=== PATIENT | male | born 1975 | race Caucasian/White ===

== ENCOUNTER 2017-08-08 12:31 | Emergency (ER) | payer BC ==
[~2017-08-08] VITALS: Ht 185.4 cm; Wt 96.6 kg
[~2017-08-08 12:31] MED LIST: A-B OTIC EAR DR15 ML OT; AMOXICILLIN500 M1 PO; AUGMENTIN 875875 MG PO; COLACE 100 MG100 MG PO; FLEXERIL PO; HYDROCODONE-AP1 EAC6 PO; MEDROLDOSEPACK PO; NORCO 5-325 TA1 EACH PO; PREDNISONE50 MG PO; VENTOLIN17 GM INH; VICODIN 5-5001 EACH PO; ZOFRAN ODT4 MG PO
[2017-08-08] MEDS ORDERED: BACTRIM DS TAB1 EACH PO (12:56)
[2017-08-08] MEDS ORDERED: NAPROSYN500 MG PO (12:56)
[2017-08-08] MEDS ORDERED: NORCO 5-325 TA1 EACH PO (12:56)
[2017-08-08 13:58] VITALS: BP 139/93
== END 2017-08-08 13:59 | disposition home or self-care (01) ==
LOC: M.ERS 12:31
DX: L02.415 Cutaneous abscess of right lower limb (principal); J45.909 Unspecified asthma, uncomplicated; F17.210 Nicotine dependence, cigarettes, uncomplicated; Z86.14 Personal history of Methicillin resistant Staphylococcus aureus infection

== ENCOUNTER → 2018-07-04 | Emergency (ER) | payer BC ==
[~2018-07-04] VITALS: Ht 188 cm; Wt 102.5 kg
[~2018-07-04] MED LIST changes: +AMOX TR-K CLV1 EAC4 PO; +BACTRIM DS TAB1 EACH PO; +DICLOFENAC SODI75 MG PO; +HYDROCODON-ACE1 EAC7 PO; +NAPROSYN500 MG PO
[2018-07-04 08:17] LABS: ABSOLUTE BASOPHILS 0.1 thou/uL (0.0-0.2); ABSOLUTE EOSINOPHILS 0.4 thou/uL (0.0-0.7); ABSOLUTE LYMPHOCYTES 2.8 thou/uL (0.8-5.3); ABSOLUTE MONOCYTES 0.7 thou/uL (0.0-1.2); ABSOLUTE NEUTROPHILS 4.9 thou/uL (1.6-8.1); HEMATOCRIT 57.3 % (42.0-52.0); HEMOGLOBIN 19.5 gm/dL (14.0-18.0); LYMPHOCYTES 31.5 %; MCH 31.7 pg (26.0-34.0); MCHC 34.1 g/dL (28.0-37.0); MONOCYTES 8.1 %; MPV 9.5 fl. (7.2-11.1); NUCLEATED RBCS 0 /100WBC; PLATELET COUNT* 266 thou/uL (150-400); POLYS 54.4 %; RBC 6.16 mil/uL (4.50-6.00); RDW-CV 14.1 % (10.5-14.5)
[2018-07-04 08:31] LABS: ALBUMIN 3.5 g/dL (3.4-5.0); ALKALINE PHOSPHATASE 85 U/L (46-116); ANION GAP 8 mmol/L (7-16); BUN 17 mg/dL (7-18); CALCIUM 8.5 mg/dL (8.5-10.1); CHLORIDE 102 mmol/L (98-107); CO2 27 mmol/L (21-32); GLUCOSE 98 mg/dL (70-99); NT-PRO BRAIN NAT PEPTIDE 25 pg/mL (<300); POTASSIUM 3.9 mmol/L (3.5-5.1); SGOT 39 U/L (15-37); SGPT 147 U/L (30-65); SODIUM 137 mmol/L (136-145); TOTAL BILIRUBIN 0.6 mg/dL (<0.1-1.0); TOTAL PROTEIN 7.1 g/dL (6.4-8.2); TROPONIN-I LEVEL <0.06 ng/mL (<0.06)
[2018-07-04 08:59] VITALS: BP 124/80
--- NOTE | 2018-07-04 10:26 | EKG ---
[place] [address] ELECTROCARDIOGRAM REPORT Name: ERNESTINA COLBERT Room: [facility]#: [id number] Admission: 07/04/18 Attend Phys: Discharge: Date of : 77 Report #: [id number] THIS REPORT FOR: //name// [facility] ED Test Date: 2018-07-04 Test Time: 07:45:12 Pat Name: ERNESTINA COLBERT Department: Room: Gender: Quick Technician: Christie AREVALO : 1975 Requested By: Oc Fabian Order Number: [id number] MD: Darrick Aldana Measurements Intervals [place] Rate: 104 P: 70 PA: 147 QRS: 74 QRSD: 89 T: 52 QT: 308 QTc: 405 Interpretive Statements Sinus tachycardia Left atrial enlargement Baseline wander in lead(s) V1 Compared to ECG 09/14/2011 06:02:58 Atrial abnormality now present Sinus arrhythmia no longer present Electronically Signed On 07-04-2018 10:26:27 [employer]IE [employer] by Darrick Aldana [email or web address] <ELECTRONICALLY SIGNED> By: Darrick Aldana MD, [facility] 07/04/18 1026 Darrick Aldana MD, FACC /EPI
--- NOTE | 2018-07-04 14:07 | EKG ---
[place] [address] ELECTROCARDIOGRAM REPORT Name: ERNESTINA COLBERT Room: [facility]#: [id number] Admission: 07/04/18 Attend Phys: Discharge: Date of : 77 Report #: [id number] THIS REPORT FOR: //name// [facility] ED Test Date: 2018-07-04 Test Time: 07:45:12 Pat Name: ERNESTINA COLBERT Department: Room: Gender: Office Clerk Assistant: Christie AREVALO : 1975 Requested By: Oc Fabian Order Number: [id number] [id number] MD: Darrick Aldana Measurements Intervals [place] Rate: 104 P: 70 [place]: 147 QRS: 74 QRSD: 89 T: 52 QT: 308 QTc: 405 Interpretive Statements Sinus tachycardia Left atrial enlargement Baseline wander in lead(s) V1 Compared to ECG 09/14/2011 06:02:58 Atrial abnormality now present Sinus rhythm no longer present Sinus arrhythmia no longer present [employer]PERVISOR [employer] [email or web address] <ELECTRONICALLY SIGNED> By: Darrick Aldana MD, [facility] 07/04/18 1407 0745 0745 Darrick Aldana MD, [facility] /EPI
== END ==
LOC: M.ERS 07:42
PROVIDERS: Emergency Medicine
DX: S29.011A Strain of muscle and tendon of front wall of thorax, initial encounter (principal); J45.909 Unspecified asthma, uncomplicated; F17.210 Nicotine dependence, cigarettes, uncomplicated; Z86.14 Personal history of Methicillin resistant Staphylococcus aureus infection; X58.XXXA Exposure to other specified factors, initial encounter; Y93.39 Activity, other involving climbing, rappelling and jumping off; Y92.89 Other specified places as the place of occurrence of the external cause; Y99.0 Civilian activity done for income or pay

== ENCOUNTER 2018-12-29 11:08 | Emergency (ER) | payer BC ==
[~2018-12-29] VITALS: Ht 188 cm; Wt 87.5 kg
[2018-12-29] MEDS ORDERED: ZYRTEC10 M5 PO (11:20)
[2018-12-29] MEDS ORDERED: ZANTAC 150MG T150 MG PO (11:20)
[2018-12-29 11:26] LABS: ABSOLUTE BASOPHILS 0.1 thou/uL (0.0-0.2); ABSOLUTE EOSINOPHILS 0.3 thou/uL (0.0-0.7); ABSOLUTE LYMPHOCYTES 2.1 thou/uL (0.8-5.3); ABSOLUTE MONOCYTES 0.7 thou/uL (0.0-1.2); ABSOLUTE NEUTROPHILS 7.1 thou/uL (1.6-8.1); BASOPHILS 0.8 %; EOSINOPHILS 3.3 %; HEMATOCRIT 48.5 % (42.0-52.0); HEMOGLOBIN 16.4 gm/dL (14.0-18.0); LYMPHOCYTES 20.2 %; MCH 29.5 pg (26.0-34.0); MCHC 33.8 g/dL (28.0-37.0); MCV 87.2 fL (80.0-100.0); MONOCYTES 7.1 %; MPV 9.3 fl. (7.2-11.1); NUCLEATED RBCS 0 /100WBC; PLATELET COUNT* 267 thou/uL (150-400); POLYS 68.6 %; RBC 5.56 mil/uL (4.50-6.00); RDW-CV 13.5 % (10.5-14.5); WBC 10.3 thou/uL (4.0-11.0)
[2018-12-29 11:34] LABS: URINE BLOOD NEGATIVE (Negative); URINE CLARITY CLEAR; URINE COLOR YELLOW; URINE GLUCOSE-RANDOM NEGATIVE (Negative); URINE KETONES TRACE (Negative); URINE LEUKOCYTES-REFLEX NEGATIVE (Negative); URINE NITRITE-REFLEX NEGATIVE (Negative); URINE PROTEIN 1+ (Negative); URINE SPECIFIC GRAVITY >= 1.030 (1.005-1.030)
[2018-12-29 11:35] LABS: ICTOTEST (BILI CONFIRMATORY) Negative (Negative); URINE BILIRUBIN 1+ (Negative)
[2018-12-29 12:54] LABS: CALCIUM 9.2 mg/dL (8.5-10.1); CREATININE 1.3 mg/dL (0.6-1.3); POTASSIUM 3.9 mmol/L (3.5-5.1)
[2018-12-29 12:58] LABS: ALBUMIN 3.7 g/dL (3.4-5.0); TOTAL BILIRUBIN 0.7 mg/dL (<0.1-1.0); TOTAL PROTEIN 7.3 g/dL (6.4-8.2)
[2018-12-29] MEDS ORDERED: ACETAMINOPHEN-1 EAC1 PO (14:04)
[2018-12-29] MEDS ORDERED: OMEPRAZOLE 20 M20 M1 PO (14:04)
[2018-12-29] MEDS ORDERED: MAGIC MOUTHWASH SW&SWALLOW (14:04)
[2018-12-29 14:22] VITALS: BP 112/82
--- NOTE | 2018-12-29 18:02 | EKG ---
[place] [address] ELECTROCARDIOGRAM REPORT Name: ERNESTINA COLBERT [id number] Admission: 12/29/18 Attend Phys: Discharge: 12/29/18 Date of : 77 Report #: [id number] THIS REPORT FOR: //name// [facility] ED Test Date: 2018-12-29 Test Time: 11:51:06 Pat Name: ERNESTINA COLBERT Department: Room: Gender: M Linux Devops Engineer: : 1975 Requested By: Bk Berman Order Number: [id number] MD: Bobo Licona Measurements Intervals [place] Rate: 75 P: 63 MT: 151 QRS: 78 QRSD: 96 T: 59 QT: 367 QTc: 410 Interpretive Statements Sinus rhythm Compared to ECG 07/04/2018 07:45:12 Sinus tachycardia no longer present Electronically Signed On 12-29-2018 18:01:47 CDT by Bobo Licona [email or web address] <ELECTRONICALLY SIGNED> By: Bobo Licona MD, [facility] 12/29/18 1801 1151 1151 Bobo Licona MD, FACC /EPI
== END 2018-12-29 14:23 | disposition home or self-care (01) ==
LOC: M.ERS 11:08
PROVIDERS: Physician Assistant
DX: R10.84 Generalized abdominal pain (principal); J45.909 Unspecified asthma, uncomplicated; F17.210 Nicotine dependence, cigarettes, uncomplicated; Z98.52 Vasectomy status